=== PATIENT | female | born 1950 | race Caucasian/White ===

== ENCOUNTER 2017-07-17 19:54 | Emergency (ER) | payer OTHER ==
[~2017-07-17] VITALS: Ht 152.4 cm; Wt 79.3 kg
[2017-07-17 20:50] LABS: HEMATOCRIT 47.3 % (34.6-47.8); HEMOGLOBIN 15.5 g/dL (11.7-16.4)
[2017-07-17 21:00] LABS: BLOOD UREA NITROGEN 18 mg/dL (7-18)
[2017-07-17 21:05] LABS: IS PT STATUS REG ER OR PRE ER? YES
[2017-07-17] MEDS ORDERED: LISINOPRIL 20 MG TABLET ONE (21:33)
[2017-07-17 21:40] VITALS: BP 165/82
[2017-07-17] MEDS ORDERED: LISINOPRIL 10 MG TABLET PO ONE (22:00)
== END 2017-07-17 22:09 | disposition home or self-care (01) ==
LOC: ED 22:03
DX: I10 Essential (primary) hypertension (principal); R04.0 Epistaxis
CPT/HCPCS: 36415; 71020; 80048; 82040; 84484; 85025; 93005; 99285